=== PATIENT | female | born 1955 | race Caucasian/White ===

== ENCOUNTER → 2016-05-22 | Outpatient (CLI) | payer OTHER ==
[2016-05-22 09:17] LABS: Basophils # (A) 0.1 k/uL (0-0.2); Basophils % (A) 1 %; CHCM 32.9; Eosinophils # (A) 0.3 k/uL (0-0.7); Eosinophils % (A) 5 %; HCT 46.2 % (34.0-46.0); HDW 2.19; HGB 14.8 gm/dL (11.4-16.0); Luc # (Auto) 0.19; Luc % (Auto) 3; Lymphocytes # (A) 2.1 k/uL (1.0-4.8); Lymphocytes % (A) 35 %; MCH 29.3 pg (25.0-35.0); MCV 91.7 fL (80.0-100.0); Mean Platelet Volume 6.3; Monocytes # (A) 0.4 k/uL (0-1.0); Monocytes % (A) 6 %; Neutrophils % (A) 50 %; RBC 5.04 m/uL (3.80-5.40); RDW 13.5 % (11.5-15.5); WBC (Perox) 5.96
[2016-05-22 09:48] LABS: ALT 38 U/L (9-52); AST 28 U/L (14-36); Alkaline Phosphatase 52 U/L (38-126); Anion Gap 11 mmol/L; Blood Urea Nitrogen 20 mg/dL (7-17); Carbon Dioxide 27 mmol/L (22-30); Chloride 103 mmol/L (98-107); Cholesterol 182 mg/dL (<200); Glucose 112 mg/dL (74-99); HDL Cholesterol 81 mg/dL (40-60); Non-African American GFR(MDRD) >60 (>60 ml/min/1.73 sqM); Potassium 4.3 mmol/L (3.5-5.1); Sodium 141 mmol/L (137-145); Total Bilirubin 0.8 mg/dL (0.2-1.3); Total Protein 7.4 g/dL (6.3-8.2); Triglycerides 99 mg/dL (<150)
--- NOTE | 2016-05-22 09:53 | BD ---
EXAMINATION TYPE: MG DEXA axial skeleton. DATE OF EXAM: 05/22/2016 9:34 AM COMPARISON: 12.23.2010 CLINICAL HISTORY: M81.0 OSTEOPOROSIS Height: 59 Weight: 229 FRAX RISK QUESTIONS: Alcohol (3 or more units per day): NO Family History (Parent hip fracture): YES BUT NO BROKEN HIP Glucocorticoids (More than 3mos): NO (Ex: prednisone, prednisolone, methylprednisolone, dexamethasone, and hydrocortisone). History of Fracture in Adulthood: NO Secondary Osteoporosis: NO 1. Type 1 Diabetes: NO 2. Hyperthyroidism: NO 3. Menopause before 45: NO 4. Malnutrition: NO 5. Chronic liver disease: NO Rheumatoid Arthritis: NO Current Tobacco Use: NO RISK FACTORS HISTORY OF: Family History of Osteoporosis: YES, HER FATHER Smoke tobacco: NO Drink Alcohol: SOCIAL Active: YES Diet low in dairy products/other sources of calcium: NO Postmenopausal woman: HYST AT 49 YRS OLD Adrenal Insufficiency: NO MEDICATIONS: Prednisone or other steroids: NOT IN A LONG TIME Additional Medications: BP MEDS, XANAX, Additional History: OSTEOARTHRITIS EXAM MEASUREMENTS: Bone mineral densitometry was performed using the [employer] System. Bone mineral density as measured about the Lumbar spine is: ----- L1-L4(G/cm2): 1.537 T Score Values are as follows: ----- L1: 1.6 ----- L2: 3.9 ----- L3: 3.1 ----- L4: 3.0 ----- L1-L4: 3.0 Bone mineral density has: Increased 6.7% since study of: 12.23.2010 Bone mineral density about the R hip (g/cm2): 0.923 Bone mineral density about the L hip (g/cm2): 0.863 T Score values are as follows: -----R Neck: -0.8 -----L Neck: -1.3 -----R Intertrochanter: -0.2 -----L Intertrochanter: 0.2 Bone mineral density has: Decreased -1.4% since study of: 12.23.2010 fRAX %'S: 6.3% FOR A MAJOR OSTEOPOROTIC FX AND 0.4% FOR A HIP FX.....PROBABILITY OF FX IN 10 Y RS TIME IMPRESSION: Osteopenia (T Score between -2.5 and -1 as noted by T score values There is slightly increased risk of fracture and the patient may be considered for treatment. Re-Screen 1-2 years. FOR LT HIP ONLY AT THE NECK NOTE: T-SCORE=SD OF THE YOUNG ADULT MEAN.
[2016-05-22 12:37] LABS: Hemoglobin A1C 5.6 % (4.2-6.1)
--- NOTE | 2016-05-26 07:33 | MM ---
Reason for exam: screening (asymptomatic). Last mammogram was performed 5 years and 5 months ago. History: Patient is postmenopausal. Physical Findings: A clinical breast exam by your physician is recommended on an annual basis and results should be correlated with mammographic findings. MG Screening Mammo w CAD Bilateral CC and MLO view(s) were taken. Prior study comparison: December 23, 2010, bilateral digital screening mammo w/CAD. There are scattered fibroglandular densities. Finding: There are typically benign round linear calcifications in the right breast. There is no discrete abnormality. ASSESSMENT: Benign, BI-RAD 2 RECOMMENDATION: Routine screening mammogram of both breasts in 1 year.
== END | disposition home or self-care (01) ==
LOC: RADMAMWWP 08:21
PROVIDERS: ATTEND Internal Medicine Geriatric Medicine
DX: Z12.31 Encounter for screening mammogram for malignant neoplasm of breast (principal); M81.0 Age-related osteoporosis without current pathological fracture; M85.80 Other specified disorders of bone density and structure, unspecified site; I10 Essential (primary) hypertension; R73.9 Hyperglycemia, unspecified; E55.9 Vitamin D deficiency, unspecified; E78.00 Pure hypercholesterolemia, unspecified
CPT/HCPCS: 84439; 80061; 80053; 83036; 84443; 85025; 82306; 77080; 36415; G0202

== ENCOUNTER → 2017-07-22 | Outpatient (CLI) | payer OTHER ==
--- NOTE | 2017-07-23 09:08 | MM ---
Reason for exam: screening (asymptomatic). Last mammogram was performed 1 year and 2 months ago. History: Patient is postmenopausal. Physical Findings: A clinical breast exam by your physician is recommended on an annual basis and results should be correlated with mammographic findings. MG Screening Mammo w CAD Bilateral CC and MLO view(s) were taken. XCCL view(s) were taken of the left breast. Prior study comparison: May 22, 2016, bilateral MG screening mammo w CAD. December 23, 2010, bilateral digital screening mammo w/CAD. There are scattered fibroglandular densities. Finding: There are typically benign round, linear calcifications in both breasts. There is no discrete abnormality. ASSESSMENT: Benign, BI-RAD 2 RECOMMENDATION: Routine screening mammogram of both breasts in 1 year.
== END | disposition home or self-care (01) ==
LOC: RADMAMWWP 15:52
PROVIDERS: ATTEND Internal Medicine Geriatric Medicine
DX: Z12.31 Encounter for screening mammogram for malignant neoplasm of breast (principal)
CPT/HCPCS: 77067

== ENCOUNTER → 2017-08-13 | Outpatient (CLI) | payer OTHER ==
[2017-08-13 09:23] LABS: Basophils # (A) 0.1 k/uL (0-0.2); Basophils % (A) 1 %; Eosinophils # (A) 0.4 k/uL (0-0.7); Eosinophils % (A) 6 %; Lymphocytes # (A) 1.9 k/uL (1.0-4.8); Lymphocytes % (A) 33 %; MCHC 32.5 g/dL (31.0-37.0); MCV 92.4 fL (80.0-100.0); Mean Platelet Volume 6.5; Monocytes # (A) 0.4 k/uL (0-1.0); Monocytes % (A) 6 %; Neutrophils # (A) 2.9 k/uL (1.3-7.7); Neutrophils % (A) 50 %; Platelet Count 180 k/uL (150-450); RBC 4.98 m/uL (3.80-5.40); RDW 13.4 % (11.5-15.5); WBC 5.8 k/uL (3.8-10.6)
[2017-08-13 10:00] LABS: ALT 49 U/L (9-52); AST 33 U/L (14-36); Albumin 4.3 g/dL (3.5-5.0); Alkaline Phosphatase 49 U/L (38-126); Anion Gap 10 mmol/L; Blood Urea Nitrogen 19 mg/dL (7-17); Calcium 9.9 mg/dL (8.4-10.2); Carbon Dioxide 28 mmol/L (22-30); Chloride 102 mmol/L (98-107); Cholesterol 168 mg/dL (<200); Glucose 101 mg/dL (74-99); HDL Cholesterol 71 mg/dL (40-60); LDL Cholesterol,Calculated 80 mg/dL (0-99); Potassium 5.1 mmol/L (3.5-5.1); Sodium 140 mmol/L (137-145); Total Bilirubin 0.4 mg/dL (0.2-1.3); Triglycerides 86 mg/dL (<150)
[2017-08-13 10:13] LABS: T4, Free (Free Thyroxine) 0.97 ng/dL (0.78-2.19)
[2017-08-13 18:41] LABS: Hemoglobin A1C 5.7 % (4.0-6.0)
== END | disposition home or self-care (01) ==
LOC: LABWHC1 09:02
PROVIDERS: ATTEND Internal Medicine Geriatric Medicine
DX: I10 Essential (primary) hypertension (principal); E78.00 Pure hypercholesterolemia, unspecified; E03.9 Hypothyroidism, unspecified; R73.9 Hyperglycemia, unspecified
CPT/HCPCS: 36415; 80053; 80061; 83036; 84439; 84443; 85025

== ENCOUNTER → 2018-04-04 | Outpatient (CLI) | payer OTHER ==
--- NOTE | 2018-04-04 15:19 | XR ---
EXAMINATION TYPE: XR chest 2V DATE OF EXAM: 04/04/2018 COMPARISON: NONE HISTORY: Shortness of breath TECHNIQUE: Frontal and lateral views of the chest are obtained. FINDINGS: Scattered senescent parenchymal changes noted. Hyperinflation compatible with COPD. No evidence for infiltrate. No evidence for atelectasis. Heart size is stable. Mediastinal structures are stable and grossly unremarkable. No evidence for hilar prominence. Degenerative changes dorsal spine. IMPRESSION: 1. No evidence for acute pulmonary disease.
== END | disposition home or self-care (01) ==
LOC: RADXRMAIN 14:53
PROVIDERS: ATTEND Internal Medicine Geriatric Medicine
DX: R05 Cough (principal)
CPT/HCPCS: 71046

== ENCOUNTER → 2018-09-15 | Outpatient (CLI) | payer OTHER ==
--- NOTE | 2018-09-16 09:14 | MM ---
Reason for exam: screening (asymptomatic). Last mammogram was performed 1 year and 2 months ago. History: Patient is postmenopausal. Physical Findings: A clinical breast exam by your physician is recommended on an annual basis and results should be correlated with mammographic findings. MG Screening Mammo w CAD Bilateral CC and MLO view(s) were taken. XCCL view(s) were taken of the right breast. Prior study comparison: July 22, 2017, bilateral MG screening mammo w CAD. May 22, 2016, bilateral MG screening mammo w CAD. The breast tissue is almost entirely fat. Stable benign calcifications. There is no discrete abnormality. No significant changes when compared with prior studies. ASSESSMENT: Benign, BI-RAD 2 RECOMMENDATION: Routine screening mammogram of both breasts in 1 year.
--- NOTE | 2018-09-16 10:37 | BD ---
EXAMINATION TYPE: Axial Bone Density DATE OF EXAM: 09/15/2018 COMPARISON: 05.04.2016 CLINICAL HISTORY: 63 YR OLD FEMALE....ICD-10 CODE: M81.0 AGE RELATED Height: 58.4 Weight: 254 FRAX RISK QUESTIONS: NOTHING ADDITIONAL TO NOTE HERE RISK FACTORS HISTORY OF: HX OF ANKLE AND ELBOW FXS BEFORE THE AGE OF 51 YRS OLD Family History of Osteoporosis: YES, NO FXS Postmenopausal woman: TOTAL HYST AT 49 YRS OLD MEDICATIONS: Additional Medications: BP MEDS, STATIN FOR CHOLESTEROL, VITAMINS, VIT D, TUMS FOR REFLUX, XANAX Additional History: HYPERTENSION, CHOLESTEROL EXAM MEASUREMENTS: Bone mineral densitometry was performed using the [employer] System. Bone mineral density as measured about the Lumbar spine is: ----- L1-L4(G/cm2): 1.645 T Score Values are as follows: ----- L1: 2.0 ----- L2: 3.9 ----- L3: 4.5 ----- L4: 4.6 ----- L1-L4: 3.9 Bone mineral density has: Increased 8.2% since study of: 05.22.2016 Bone mineral density about the R hip (g/cm2): 1.005 Bone mineral density about the L hip (g/cm2): 1.012 T Score values are as follows: -----R Neck: -1.1 -----L Neck: -1.0 -----R Total: 0.0 -----L Total: 0.0 Bone mineral density has: Increased 2.0% since study of: 05.22.2016 FRAX%s: THERE IS A 6.2% CHANCE FOR A MAJOR OSTEOPOROTIC FX AND A 2.0% FOR HIP.....PROBABILITY FOR F X IN 10 YRS TIME Dextroscoliosis is noted. IMPRESSION: Osteopenia (T Score between -2.5 and -1). There is slightly increased risk of fracture and the patient may be considered for treatment. Re-Screen 2-5 years. NOTE: T-SCORE=SD OF THE YOUNG ADULT MEAN.
== END | disposition home or self-care (01) ==
LOC: RADMAMWWP 14:55
PROVIDERS: ATTEND Internal Medicine Geriatric Medicine
DX: Z12.31 Encounter for screening mammogram for malignant neoplasm of breast (principal); M85.80 Other specified disorders of bone density and structure, unspecified site
CPT/HCPCS: 77067; 77080

== ENCOUNTER 2018-12-24 13:33 | Emergency (ER) | payer OTHER ==
[2018-12-24 13:39] VITALS: TEMP 98
[2018-12-24] MEDS ORDERED: SODIUM CHLORIDE 0.9% 1,000 ML IV STA (14:25)
[2018-12-24] MEDS ORDERED: DIAZEPAM 5 MG/ML 2 ML INJ IVP STA (14:25)
[2018-12-24 15:16] LABS: Appearance,Urine Clear (Clear); Bilirubin,Urine Negative (Negative); Blood,Urine Negative (Negative); Color,Urine Light Yellow; Glucose,Urine (UA) Negative (Negative); Ketones,Urine Negative (Negative); Leukocyte Esterase,Urine Negative (Negative); Nitrite,Urine Negative (Negative); PH, Urine 5.5 (5.0-8.0); Protein,Urine Negative (Negative); Specific Gravity,Urine 1.011 (1.001-1.035); Urobilinogen,Urine <2.0 mg/dL (<2.0)
--- NOTE | 2018-12-24 15:17 | XR ---
EXAMINATION TYPE: XR chest 2V DATE OF EXAM: 12/24/2018 COMPARISON: 04/04/2018 HISTORY: Dizziness TECHNIQUE: Frontal and lateral views of the chest are obtained. FINDINGS: Heart and mediastinum are normal. Lungs are clear. Diaphragm is normal. Bony thorax appear s normal. IMPRESSION: Normal chest. No change.
[2018-12-24 15:22] LABS: Basophils % (A) 0 %; Eosinophils % (A) 1 %; HCT 44.2 % (34.0-46.0); HGB 15.1 gm/dL (11.4-16.0); Lymphocytes # (A) 1.2 k/uL (1.0-4.8); Lymphocytes % (A) 15 %; MCH 31.2 pg (25.0-35.0); MCHC 34.1 g/dL (31.0-37.0); MCV 91.4 fL (80.0-100.0); Mean Platelet Volume 5.9; Monocytes # (A) 0.3 k/uL (0-1.0); Monocytes % (A) 4 %; Neutrophils # (A) 6.2 k/uL (1.3-7.7); Neutrophils % (A) 79 %; Platelet Count 213 k/uL (150-450); Prothrombin Time 10.6 sec (9.0-12.0); RBC 4.84 m/uL (3.80-5.40); WBC 7.9 k/uL (3.8-10.6)
[2018-12-24 15:24] LABS: ALT 45 U/L (9-52); AST 43 U/L (14-36); African American GFR (CKD) >90 (>60 ml/min/1.73 sqM); Albumin 4.5 g/dL (3.5-5.0); Alkaline Phosphatase 47 U/L (38-126); Anion Gap 9 mmol/L; Blood Urea Nitrogen 18 mg/dL (7-17); Calcium 9.7 mg/dL (8.4-10.2); Carbon Dioxide 26 mmol/L (22-30); Chloride 105 mmol/L (98-107); Glucose 131 mg/dL (74-99); Sodium 140 mmol/L (137-145); Total Bilirubin 0.5 mg/dL (0.2-1.3); Total Protein 7.6 g/dL (6.3-8.2)
--- NOTE | 2018-12-24 15:36 | ED ---
Dizziness HPI - General Chief Complaint: Dizziness Stated Complaint: Irregular heartbeat, vertigo Time Seen by Provider: 12/24/18 13:35 Source: patient Mode of arrival: wheelchair Limitations: no limitations - History of Present Illness Initial Comments: With past medical history of hypertension and hyperlipidemia who presents to the emergency department with report vertiginous symptoms. They are worse with positional changes. States that they were sudden onset this morning. She does have a mild associated headache which is graded 2 out of 10. Denies any visual changes. No unilateral numbness or weakness. Feels as if the room is spinning on her. When she attempts to ambulate she feels off balance. She reports 1 history of similar in the past. She was never evaluated for and states that after several days it went away on its own. She denies any fevers or chills. Admits to nausea with 2 episodes of vomiting earlier today. She thought maybe her sugar was low so she attempted to eat something and vomited it right back up. Denies a history of diabetes. No recent blunt head trauma. Denies weakness. No history of strokes. Does admit to an urgent care who performed an EKG. He were concerned with the way it looked in there for the patient come into the emergency room. She denies cardiac history. Denies chest pain or shortness of breath. No chest palpitations at this time. Reports a history of palpitations for which she did have a cardiac evaluation. States it's been a long time since she has had them. There are no other alleviating, precipitating or modifying factors - Related Data Home Medications Medication Instructions Recorded Confirmed ALPRAZolam [Xanax] 0.125 mg PO DAILY PRN 12/24/18 12/24/18 Bisoprol/Hydrochlorothiazide 1 tab PO DAILY 12/24/18 12/24/18 [Bisoprolol-Hctz 10-6.25 mg Tab] Ergocalciferol [Vitamin D2] 50,000 unit PO Q14D 12/24/18 12/24/18 Hydrochlorothiazide [Hydrodiuril] 25 mg PO DAILY 12/24/18 12/24/18 Lisinopril [Zestril] 20 mg PO DAILY 12/24/18 12/24/18 Multivitamins, Thera [Multivitamin 1 tab PO DAILY 12/24/18 12/24/18 (formulary)] Simvastatin [Zocor] 20 mg PO QAM 12/24/18 12/24/18 Previous Rx's Medication Instructions Recorded Meclizine [Antivert] 25 mg PO TID PRN #15 tab 12/24/18 Allergies Allergy/AdvReac Type Severity Reaction Status Date / Time adhesive tape Allergy Rash/Hives Verified 12/24/18 14:19 bee venom protein (honey bee) Allergy Swelling Verified 12/24/18 14:19 Review of Systems ROS Statement: Those systems with pertinent positive or pertinent negative responses have been documented in the HPI. ROS Other: All systems not noted in ROS Statement are negative. Past Medical History Past Medical History: Hyperlipidemia, Hypertension History of Any Multi-Drug Resistant Organisms: None Reported Past Surgical History: Hysterectomy, Orthopedic Surgery Additional Past Surgical History / Comment(s): abd exp lap Past Psychological History: No Psychological Hx Reported Smoking Status: Never smoker Past Alcohol Use History: Occasional Past Drug Use History: None Reported General Exam Limitations: no limitations Course Vital Signs 12/24/18 12/24/18 12/24/18 13:35 15:00 17:00 Temperature 98.0 F Pulse Rate 73 75 76 Respiratory 18 16 16 Rate Blood Pressure 204/99 153/86 136/76 O2 Sat by Pulse 97 98 98 Oximetry EKG Findings - EKG Comments: EKG Findings:: EKG demonstrates a normal sinus rhythm with a ventricular rate of 87. SC interval 98. QRS 106. QTC 474. Incomplete right bundle branch block. There is a Q wave in lead 3. No acute ST segment elevations Medical Decision Making - Medical Decision Making Upon arrival patient was placed into room 9. A thorough history and physical exam was performed. I did repeat in 12-lead EKG and the patient which does not demonstrate any concerning signs to me. The patient does have a right bundle branch block. There is a Q wave in lead 3. Peripheral IV was established. The patient was given 5 mg of Valium and a liter bolus of normal saline. I recommended laboratory studies, chest x-ray and a CT the patient's brain. Laboratory studies are unremarkable. Urine is negative. First troponin is negative. CT of the patient's brain demonstrates no acute findings chest x-ray demonstrates no change, normal chest. I did reevaluate the patient. She states that she was able to get up and ambulate to the CT with improvement in her symptoms. As the patient's symptoms are not entirely resolved I did recommend giving the patient's an additional dose of meclizine. Patient did agree to this. I did reevaluate the patient she feels comfortable for discharge at this time. I informed her that she should follow-up with a primary care physician and had a full cardiac workup. If her symptoms persist she should return to the emergency department. Patient was in agreement with the treatment plan she was discharged home ambulatory in stable condition without signs of ataxia - Lab Data Result diagrams: 12/24/18 14:50 12/24/18 14:50 Lab Results 12/24/18 12/24/18 12/24/18 Range/Units 14:50 14:50 14:50 WBC 7.9 (3.8-10.6) k/uL RBC 4.84 (3.80-5.40) m/uL Hgb 15.1 (11.4-16.0) gm/dL Hct 44.2 (34.0-46.0) % MCV 91.4 (80.0-100.0) fL MCH 31.2 (25.0-35.0) pg MCHC 34.1 (31.0-37.0) g/dL RDW 13.0 (11.5-15.5) % Plt Count 213 (150-450) k/uL Neutrophils % 79 % Lymphocytes % 15 % Monocytes % 4 % Eosinophils % 1 % Basophils % 0 % Neutrophils # 6.2 (1.3-7.7) k/uL Lymphocytes # 1.2 (1.0-4.8) k/uL Monocytes # 0.3 (0-1.0) k/uL Eosinophils # 0.0 (0-0.7) k/uL Basophils # 0.0 (0-0.2) k/uL PT 10.6 (9.0-12.0) sec INR 1.0 (<1.2) Sodium 140 (137-145) mmol/L Potassium 4.1 (3.5-5.1) mmol/L Chloride 105 (98-107) mmol/L Carbon Dioxide 26 (22-30) mmol/L Anion Gap 9 mmol/L BUN 18 H (7-17) mg/dL Creatinine 0.67 (0.52-1.04) mg/dL Est GFR (CKD-EPI)AfAm >90 (>60 ml/min/1.73 sqM) Est GFR (CKD-EPI)NonAf >90 (>60 ml/min/1.73 sqM) Glucose 131 H (74-99) mg/dL Calcium 9.7 (8.4-10.2) mg/dL Total Bilirubin 0.5 (0.2-1.3) mg/dL AST 43 H (14-36) U/L ALT 45 (9-52) U/L Alkaline Phosphatase 47 (38-126) U/L Troponin I (0.000-0.034) ng/mL Total Protein 7.6 (6.3-8.2) g/dL Albumin 4.5 (3.5-5.0) g/dL Urine Color Urine Appearance (Clear) Urine pH (5.0-8.0) Ur Specific [place] (1.001-1.035) Urine Protein (Negative) Urine Glucose (UA) (Negative) Urine Ketones (Negative) Urine Blood (Negative) Urine Nitrite (Negative) Urine Bilirubin (Negative) Urine Urobilinogen (<2.0) mg/dL Ur Leukocyte Esterase (Negative) 12/24/18 12/24/18 Range/Units 14:50 14:50 WBC (3.8-10.6) k/uL RBC (3.80-5.40) m/uL Hgb (11.4-16.0) gm/dL Hct (34.0-46.0) % MCV (80.0-100.0) fL MCH (25.0-35.0) pg MCHC (31.0-37.0) g/dL RDW (11.5-15.5) % Plt Count (150-450) k/uL Neutrophils % % Lymphocytes % % Monocytes % % Eosinophils % % Basophils % % Neutrophils # (1.3-7.7) k/uL Lymphocytes # (1.0-4.8) k/uL Monocytes # (0-1.0) k/uL Eosinophils # (0-0.7) k/uL Basophils # (0-0.2) k/uL PT (9.0-12.0) sec INR (<1.2) Sodium (137-145) mmol/L Potassium (3.5-5.1) mmol/L Chloride (98-107) mmol/L Carbon Dioxide (22-30) mmol/L Anion Gap mmol/L BUN (7-17) mg/dL Creatinine (0.52-1.04) mg/dL Est GFR (CKD-EPI)AfAm (>60 ml/min/1.73 sqM) Est GFR (CKD-EPI)NonAf (>60 ml/min/1.73 sqM) Glucose (74-99) mg/dL Calcium (8.4-10.2) mg/dL Total Bilirubin (0.2-1.3) mg/dL AST (14-36) U/L ALT (9-52) U/L Alkaline Phosphatase (38-126) U/L Troponin I <0.012 (0.000-0.034) ng/mL Total Protein (6.3-8.2) g/dL Albumin (3.5-5.0) g/dL Urine Color Light Yellow Urine Appearance Clear (Clear) Urine pH 5.5 (5.0-8.0) Ur Specific [place] 1.011 (1.001-1.035) Urine Protein Negative (Negative) Urine Glucose (UA) Negative (Negative) Urine Ketones Negative (Negative) Urine Blood Negative (Negative) Urine Nitrite Negative (Negative) Urine Bilirubin Negative (Negative) Urine Urobilinogen <2.0 (<2.0) mg/dL Ur Leukocyte Esterase Negative (Negative) Disposition Clinical Impression: Vertigo Disposition: HOME SELF-CARE Condition: Stable Instructions (If sedation given, give patient instructions): Dizziness (ED) Additional Instructions: Please follow-up with your primary care doctor. Return to the emergency department for any new or worsening symptoms. You may need further cardiac workup or neurologic workup if your symptoms persist Prescriptions: Meclizine [Antivert] 25 mg PO TID PRN #15 tab PRN Reason: Vertigo Is patient prescribed a controlled substance at d/c from ED?: No Referrals: Jose Martin Hernandez MD [Primary Care Provider] - 1-2 days Time of Disposition: 18:06
[2018-12-24 15:42] LABS: Potassium 4.1 mmol/L (3.5-5.1)
[2018-12-24] MEDS ORDERED: MECLIZINE 12.5 MG TAB PO STA ×2 (16:38→18:04)
--- NOTE | 2018-12-24 16:40 | CT ---
EXAMINATION TYPE: CT brain wo con DATE OF EXAM: 12/24/2018 COMPARISON: None HISTORY: Dizziness today. CT DLP: 1046.4 mGycm Automated exposure control for dose reduction was used. FINDINGS: Ventricles and sulci appear normal. There is no mass effect nor midline shift. There is no sign of in tracranial hemorrhage. The calvarium is intact. IMPRESSION: NEGATIVE HEAD CT SCAN.
[2018-12-24 17:40] VITALS: PULSE 76
[2018-12-24 18:31] VITALS: BP 151/72; RESP 20
== END 2018-12-24 18:32 | disposition home or self-care (01) ==
LOC: EC 13:33
DX: R42 Dizziness and giddiness (principal); R51 Headache; R11.2 Nausea with vomiting, unspecified; I45.10 Unspecified right bundle-branch block; I10 Essential (primary) hypertension; E78.5 Hyperlipidemia, unspecified; Z79.899 Other long term (current) drug therapy; Z91.048 Other nonmedicinal substance allergy status; Z91.030 Bee allergy status
CPT/HCPCS: 36415; 93005; 80053; 84484; 85025; 85610; 81003; 71046; 70450; 99284; 96374; 96361; J3360

== ENCOUNTER 2019-10-15 02:59 | Emergency (ER) | payer BC, OTHER ==
[2019-10-15 03:12] VITALS: BP 137/70; PULSE 80; RESP 18; TEMP 98.3
[2019-10-15] MEDS ORDERED: DIPH,PERTUS(ACELL)TETVAC-LF 0.5 ML VIAL IM ONE (03:30)
[2019-10-15] MEDS ORDERED: TOPICAL SKIN ADHESIVE 1 EACH AMP TOPICAL ONE (03:30)
--- NOTE | 2019-10-15 03:40 | ED ---
Wound/Laceration HPI - General Chief Complaint: Wound/Laceration Stated Complaint: fall Time Seen by Provider: 10/15/19 03:30 Source: patient, family Mode of arrival: wheelchair Limitations: no limitations - History of Present Illness Initial Comments: Elena is a pleasant 64-year-old female who presents the ER this morning for evaluation of a laceration to forehead. Patient reports she was having a nightmare when she rolled out of bed struck her head on the nightstand. She did not lose consciousness she immediately woke up and noted bleeding from her forehead. She applied direct pressure and came to the ER for sutures. Patient denies any headache, vision changes, weaknesses, trouble with ambulating. She denies any additional injuries. Does not know when her tetanus was last updated. - Related Data Home Medications Medication Instructions Recorded Confirmed ALPRAZolam [Xanax] 0.125 mg PO DAILY PRN 12/24/18 12/24/18 Bisoprolol/Hydrochlorothiazide 1 tab PO DAILY 12/24/18 12/24/18 [Bisoprolol-Hctz 10-6.25 mg Tab] Ergocalciferol [Vitamin D2] 50,000 unit PO Q14D 12/24/18 12/24/18 Multivitamins, Thera [Multivitamin 1 tab PO DAILY 12/24/18 12/24/18 (formulary)] Simvastatin [Zocor] 20 mg PO QAM 12/24/18 12/24/18 hydroCHLOROthiazide [Hydrodiuril] 25 mg PO DAILY 12/24/18 12/24/18 lisinopriL [Zestril] 20 mg PO DAILY 12/24/18 12/24/18 Previous Rx's Medication Instructions Recorded Meclizine [Antivert] 25 mg PO TID PRN #15 tab 12/24/18 Allergies Allergy/AdvReac Type Severity Reaction Status Date / Time adhesive tape Allergy Rash/Hives Verified 10/15/19 03:12 bee venom protein (honey bee) Allergy Swelling Verified 10/15/19 03:12 Review of Systems ROS Statement: Those systems with pertinent positive or pertinent negative responses have been documented in the HPI. ROS Other: All systems not noted in ROS Statement are negative. Past Medical History Past Medical History: Hyperlipidemia, Hypertension History of Any Multi-Drug Resistant Organisms: None Reported Past Surgical History: Hysterectomy, Orthopedic Surgery Additional Past Surgical History / Comment(s): abd exp lap Past Psychological History: No Psychological Hx Reported Smoking Status: Never smoker Past Alcohol Use History: Occasional Past Drug Use History: None Reported General Exam - General Exam Comments Initial Comments: Physical Exam GENERAL: Patient is well-developed and well-nourished. Patient is nontoxic and well-hydrated and is in no distress. HENT: Normocephalic Approximately 2 cm laceration with a vertical orientation from the medial surface of the left eyebrow up the forehead, laceration involves the skin and superficial muscle layers, there is no visible bone, no active bleeding TMs normal bilaterally no hemotympanum No cervantes signs no raccoon eyes Nasal septum is intact, no septal hematoma and no bleeding EYES: PERRL, EOMI PULMONARY: Unlabored respirations. CARDIOVASCULAR: RRR Warm and well perfused extremities ABDOMEN: Non-distended SKIN: No rashes or bruising : Deferred NEUROLOGIC: Alert and oriented Normal speech Normal gait MUSCULOSKELETAL: Moving all extremities with no apparent injury PSYCHIATRIC: No SI/HI Limitations: no limitations Course Vital Signs 10/15/19 03:06 Temperature 98.3 F Pulse Rate 80 Respiratory 18 Rate Blood Pressure 137/70 O2 Sat by Pulse 96 Oximetry Procedures - Laceration Laceration #1 Consent Obtained: verbal consent Indication: laceration Site: face Size (cm): 2 Description: linear Depth: simple, single layer Pre-repair: wound explored Type of Sutures: other (skin glue) Patient Tolerated Procedure: well, no complications Medical Decision Making - Medical Decision Making The patient was seen and evaluated history obtained from patient and Patient with a laceration on the forehead need for tetanus vaccine update I offered to suture the laceration however the patient requested skin glue and she does not want sutures I do feel the patient will have adequate cosmesis with skin glue Wound was repaired with skin glue, wound care was discussed patient remained awake alert oriented and appropriate comfortable with plan for discharge home without further CT imaging Disposition Clinical Impression: Laceration Disposition: HOME SELF-CARE Condition: Stable Additional Instructions: As we discussed any keep the wound clean and dry, do not apply any Neosporin or ointment to the skin glue as this will cause breakdown of the glue Return to the ER if the wound becomes red, swollen, painful or there are signs of infection Keep the laceration protected from the sun for the next 3mo to prevent scaring Is patient prescribed a controlled substance at d/c from ED?: No Referrals: Elena Ho [STAFF PHYSICIAN] - 1-2 days
== END 2019-10-15 04:10 | disposition home or self-care (01) ==
LOC: EC 02:59 → SUPCPDRO 02:59 → EC 04:10
DX: S01.81XA Laceration without foreign body of other part of head, initial encounter (principal); E78.5 Hyperlipidemia, unspecified; I10 Essential (primary) hypertension; Z79.899 Other long term (current) drug therapy; Z23 Encounter for immunization; Z91.048 Other nonmedicinal substance allergy status; Z91.030 Bee allergy status; W06.XXXA Fall from bed, initial encounter; Y92.003 Bedroom of unspecified non-institutional (private) residence as the place of occurrence of the external cause
CPT/HCPCS: 12011; 90471; 90715; 99282

== ENCOUNTER → 2022-01-23 | Outpatient (CLI) | payer MEDICARE ==
--- NOTE | 2022-01-23 12:11 | BD ---
EXAMINATION TYPE: Axial Bone Density DATE OF EXAM: 01/23/2022 COMPARISON: 09/15/2018 CLINICAL HISTORY: 66 years year old Female. ICD-10 CODE: M81.0 OSTEOPOROSIS Height: 58.5 IN Weight: 242 LBS FRAX RISK QUESTIONS: History of Fracture in Adulthood: RT ANKLE FX AGE 41; LT ELBOW FX AGE 41 Secondary Osteoporosis: 3. Menopause before 45: TOTAL HYST AGE 41 RISK FACTORS HISTORY OF: Family History of Osteoporosis: YES FATHER Active: YES Postmenopausal woman: TOTAL HYST AGE 41 Lost more than 2 inches in height since high school: 2 02/23" HEIGHT LOSS MEDICATIONS: Additional Medications: BLOOD PRESSURE MEDS, CHOLESTEROL MEDS EXAM MEASUREMENTS: Bone mineral densitometry was performed using the [employer] System. Bone mineral density as measured about the Lumbar spine is: ----- L1-L4(G/cm2): 1.609 T Score Values are as follows: ----- L1: 2.1 ----- L2: 3.0 ----- L3: 4.7 ----- L4: 4.1 ----- L1-L4: 3.6 Bone mineral density has: Decreased -2.8% since study of: [id number] Bone mineral density about the R hip (g/cm2): 0.841 Bone mineral density about the L hip (g/cm2): 0.895 T Score values are as follows: -----R Neck: -1.4 -----L Neck: -1.0 -----R Total: -0.3 -----L Total: 0.1 Bone mineral density has: Decreased -1.0% since study of: 09/15/2018 FRAX%s: The graph provided illustrates a 12.0 chance for a major osteoporotic fx and a 1.1 chance for the hips probability for fx in 10 years time. IMPRESSION: Osteopenia (T Score between -2.5 and -1). There is slightly increased risk of fracture and the patient may be considered for treatment. Re-Screen 2-5 years. NOTE: T-SCORE=SD OF THE YOUNG ADULT MEAN.
--- NOTE | 2022-01-26 08:46 | MM ---
Reason for Exam: Screening (asymptomatic). Last mammogram was performed 3 year(s) and 5 month(s) ago. Patient History: Menarche at age 15. First Full-Term at age 30. Left ovary removed at age 49. Right ovary removed at age 49. Hysterectomy at age 49. Postmenopausal. Risk Values: Judit 5 year model risk: 1.7%. NCI Lifetime model risk: 6.3%. Prior Study Comparison: 05/22/2016 Bilateral Screening Mammogram, [facility]. 07/22/2017 Bilateral Screening Mammogram, [facility]. 09/15/2018 Bilateral Screening Mammogram, [facility]. Tissue Density: The breast tissue is heterogeneously dense. This may lower the sensitivity of mammography. Findings: Analyzed By CAD. There is no suspicious group of microcalcifications or new suspicious mass in either breast. Overall Assessment: Benign, BI-RAD 2 Management: Screening Mammogram of both breasts in 1 year. A clinical breast exam by your physician is recommended on an annual basis and results should be correlated with mammographic findings. Electronically signed and approved by: Danielito Chaparro M.D. Radiologis
== END | disposition home or self-care (01) ==
LOC: RADBDWWP 10:26
PROVIDERS: ATTEND Internal Medicine Geriatric Medicine
DX: Z12.31 Encounter for screening mammogram for malignant neoplasm of breast (principal); M85.89 Other specified disorders of bone density and structure, multiple sites; Z90.721 Acquired absence of ovaries, unilateral; Z78.0 Asymptomatic menopausal state
CPT/HCPCS: 77063; 77067; 77080

== ENCOUNTER → 2023-06-02 | Outpatient (CLI) | payer MEDICARE ==
--- NOTE | 2023-06-03 15:14 | MM ---
Reason for Exam: Screening (asymptomatic). Last mammogram was performed 1 year(s) and 4 month(s) ago. Patient History: Menarche at age 15. First Full-Term at age 30. Left ovary removed at age 49. Right ovary removed at age 49. Hysterectomy at age 49. Postmenopausal. Risk Values: Judit 5 year model risk: 1.7%. NCI Lifetime model risk: 5.9%. Prior Study Comparison: 07/22/2017 Bilateral Screening Mammogram, [facility]. 09/15/2018 Bilateral Screening Mammogram, [facility]. 01/23/2022 Bilateral MG 3D screening mammo w/cad, [facility]. Tissue Density: There are scattered areas of fibroglandular density. Findings: Analyzed By CAD. There is no suspicious group of microcalcifications or new suspicious mass in either breast. Overall Assessment: Benign, BI-RAD 2 Management: Screening Mammogram of both breasts in 1 year. . Patient should continue monthly self-breast exams. A clinical breast exam by your physician is recommended on an annual basis. This exam should not preclude additional follow-up of suspicious palpable abnormalities. Note on Judit scores and lifetime risk: 1. A Judit score greater than 3% is considered moderate risk. If this is the case, consider specialist referral to assess eligibility for a risk reducing agent. 2. If overall lifetime risk for the development of breast cancer is 20% or higher, the patient may qualify for future screening with alternating mammogram and breast MRI. Electronically signed and approved by: Danielito Chaparro M.D. Radiologis
== END | disposition home or self-care (01) ==
LOC: RADMAMWWP 09:05
PROVIDERS: ATTEND Internal Medicine Geriatric Medicine
DX: Z12.31 Encounter for screening mammogram for malignant neoplasm of breast (principal); Z78.0 Asymptomatic menopausal state
CPT/HCPCS: 77063; 77067

== ENCOUNTER 2023-12-28 16:36 | Emergency (ER) | payer MEDICARE ==
[2023-12-28 17:11] VITALS: RESP 18
--- NOTE | 2023-12-28 17:30 | ED ---
Fall HPI - General Chief Complaint: Fall Stated Complaint: L arm injury Time Seen by Provider: 12/28/23 16:52 Source: patient, RN notes reviewed Mode of arrival: ambulatory - History of Present Illness Initial Comments: This is a 68-year-old female presenting with for a slip and fall at home x 2 hours ago. Patient states she accidentally is slipped on a rug and fell fo rward, and came to splay out, mostly falling onto her left arm and shoulder with associated pain (7 out of 10). Endorses falling onto hardwood floor. Patient denies striking her head or post fall head/neck pain. Patient denies any lightheadedness/dizziness, chest pain, palpitations, shortness of breath prior to or after fall. Patient states she is unable to abduct her left arm at all following the fall. Patient denies any injuries elsewhere. MD Complaint: fall Onset/Timin -: hour(s) Fall From: standing Fall Witnessed: yes, by family Place Fall Occurred: home Loss of Consciousness: none Prolonged Down Time?: no Symptoms Prior to Fall: none Location - Extremities: Left: Shoulder, Arm Severity scale (1-10): 7 Context: tripped/slipped - Related Data Home Medications Medication Instructions Recorded Confirmed ALPRAZolam [Xanax] 0.125 mg PO DAILY PRN 12/24/18 12/24/18 Bisoprolol/Hydrochlorothiazide 1 tab PO DAILY 12/24/18 12/24/18 [Bisoprolol-Hctz 10-6.25 mg Tab] Ergocalciferol [Vitamin D2] 50,000 unit PO Q14D 12/24/18 12/24/18 Multivitamins, Thera [Multivitamin 1 tab PO DAILY 12/24/18 12/24/18 (formulary)] Simvastatin [Zocor] 20 mg PO QAM 12/24/18 12/24/18 hydroCHLOROthiazide [Hydrodiuril] 25 mg PO DAILY 12/24/18 12/24/18 lisinopriL [Zestril] 20 mg PO DAILY 12/24/18 12/24/18 Previous Rx's Medication Instructions Recorded Meclizine [Antivert] 25 mg PO TID PRN #15 tab 12/24/18 Allergies Allergy/AdvReac Type Severity Reaction Status Date / Time adhesive tape Allergy Rash/Hives Verified 12/28/23 17:07 bee venom protein (honey bee) Allergy Swelling Verified 12/28/23 17:07 Review of Systems ROS Statement: Those systems with pertinent positive or pertinent negative responses have been documented in the HPI. ROS Other: All systems not noted in ROS Statement are negative. Past Medical History Past Medical History: Hyperlipidemia, Hypertension History of Any Multi-Drug Resistant Organisms: None Reported Past Surgical History: Hysterectomy, Orthopedic Surgery Additional Past Surgical History / Comment(s): abd exp lap Past Psychological History: No Psychological Hx Reported Smoking Status: Never smoker Past Alcohol Use History: Occasional Past Drug Use History: None Reported General Exam Limitations: physical limitation General appearance: alert, in no apparent distress Head exam: Present: atraumatic, normocephalic, normal inspection Eye exam: Present: normal appearance, PERRL, EOMI. Absent: scleral icterus, conjunctival injection, periorbital swelling ENT exam: Present: normal exam, mucous membranes moist Neck exam: Present: normal inspection. Absent: tenderness, meningismus, lymphadenopathy Respiratory exam: Present: normal lung sounds bilaterally. Absent: respiratory distress, wheezes, rales, rhonchi, stridor Cardiovascular Exam: Present: regular rate, normal rhythm, normal heart sounds. Absent: systolic murmur, diastolic murmur, rubs, gallop, clicks GI/Abdominal exam: Present: soft, normal bowel sounds. Absent: distended, tenderness, guarding, rebound, rigid Extremities exam: Present: tenderness (Positive distal left clavicle anterior and lateral shoulder and significant humerus tenderness. Negative obvious crepitus or deformity), normal capillary refill, other (Distal left hand neurovascular and motor function intact.). Absent: full ROM (Patient unable to abduct left arm from body at all due to significant pain with attempt), pedal edema, joint swelling, calf tenderness Back exam: Present: normal inspection. Absent: tenderness, vertebral tenderness Neurological exam: Present: alert, oriented X3, CN II-XII intact Psychiatric exam: Present: normal affect, normal mood Skin exam: Present: warm, dry, intact, normal color. Absent: rash Course Vital Signs 12/28/23 17:07 Temperature 98.4 F Pulse Rate 65 Respiratory 18 Rate Blood Pressure 141/72 O2 Sat by Pulse 98 Oximetry Medical Decision Making - Medical Decision Making Did you speak to anyone other than the patient for history (EMS, parent, family, police, friend...)? What history was obtained from this source @ -No Did you review nursing and triage notes (agree or disagree)? Why? @ -I reviewed and agree with nursing and triage notes Were old charts reviewed (outside hosp., previous admission, EMS record, old EKG, old radiological studies, urgent care reports/EKG's, group home records)? Report findings @ -No old charts were reviewed Differential Diagnosis (chest pain, altered mental status, abdominal pain women, abdominal pain men, vaginal bleeding, weakness, fever, dyspnea, syncope, headache, dizziness, GI bleed, back pain, seizure, CVA, palpatations, mental health, musculoskeletal)? @ -Shoulder dislocation, clavicular fracture, scapular fracture, humeral head fracture, humerus fracture, rotator cuff tear, shoulder contusion, upper extremity contusion. EKG interpreted by me (3pts min.). @ -Not done X-rays interpreted by me (1pt min.). @ -Left shoulder and humerus x-ray revealed closed fracture at greater tubercle of the humerus CT interpreted by me (1pt min.). @ -None done U/S interpreted by me (1pt. min.). @ -None done What testing was considered but not performed or refused? (CT, X-rays, U/S, labs)? Why? @ -None What meds were considered but not given or refused? Why? @ -Patient declined IM Toradol for pain and T3 starter pack for ongoing pain. Did you discuss the management of the patient with other professionals (professionals i.e. , PA, ASSOCIATE DIRECTOR FINANCIAL AID, lab, RT, psych nurse, social work manager, debubblizer, teacher, chief revenue officer, disease case manager)? Give summary @ -No Was smoking cessation discussed for >3mins.? @ -No Was critical care preformed (if so, how long)? @ -No Were there social determinants of health that impacted care today? How? (Homelessness, low income, unemployed, alcoholism, drug addiction, transportation, low edu. Level, literacy, decrease access to med. care, retirement, rehab)? @ -No Was there de-escalation of care discussed even if they declined (Discuss DNR or withdrawal of care, Hospice)? DNR status @ -No What co-morbidities impacted this encounter? (DM, HTN, Smoking, COPD, CAD, Cancer, CVA, ARF, Chemo, Hep., AIDS, mental health diagnosis, sleep apnea, morbid obesity)? @ -None Was patient admitted / discharged? Hospital course, mention meds given and route, prescriptions, significant lab abnormalities, going to OR and other pertinent info. @ -Discharge. Left shoulder/humerus x-rays ordered. Patient given Motrin 800 p.o. for pain. X-ray showed proximal humerus fracture. Patient provided sling and advised to follow-up with Ortho in 24 to 48 hours. Undiagnosed new problem with uncertain prognosis? @ -No Drug Therapy requiring intensive monitoring for toxicity (Heparin, Nitro, Insulin, Cardizem)? @ -No Were any procedures done? @ -No Diagnosis/symptom? @ -Humerus fracture Acute, or Chronic, or Acute on Chronic? @ -Acute Uncomplicated (without systemic symptoms) or Complicated (systemic symptoms)? @ -Uncomplicated Side effects of treatment? @ -No Exacerbation, Progression, or Severe Exacerbation? @ -No Poses a threat to life or bodily function? How? (Chest pain, USA, PA, pneumonia, PE, COPD, DKA, ARF, appy, cholecystitis, CVA, Diverticulitis, Homicidal, Suicidal, threat to staff... and all critical care pts) @ -No Disposition Clinical Impression: Humerus fracture Disposition: HOME SELF-CARE Condition: Good Instructions (If sedation given, give patient instructions): Arm Fracture in Adults (ED) Additional Instructions: Alternate Tylenol/ibuprofen every 4 hours as needed for pain. Follow-up with orthopedics in the next 24 to 48 hours for ongoing care. Is patient prescribed a controlled substance at d/c from ED?: No Referrals: Jose Martin Hernandez MD [Primary Care Provider] - 1-2 days Time of Disposition: 19:24
[2023-12-28] MEDS: IBUPROFEN 800 MG TAB PO STA (18:06)
--- NOTE | 2023-12-28 18:40 | XR ---
EXAMINATION TYPE: XR clavicle LT DATE OF EXAM: 12/28/2023 COMPARISON: None HISTORY: Fall left shoulder and humerus pain, left arm pain following fall TECHNIQUE: 2 view left clavicle FINDINGS: Acromioclavicular and sternoclavicular junctions appear normal. The clavicle as visualized appears intact. No acute left clavicular fractures identified. Follow-up can be performed as clinical ly indicated. Faintly visualized is a left greater tuberosity fracture of the humerus. IMPRESSION: 1. No acute left clavicular fracture. 2. Fracture of the greater tuberosity left humerus. [facility], Workstation: [facility], 12/28/2023 6:37 PM
--- NOTE | 2023-12-28 19:01 | XR ---
EXAMINATION TYPE: XR shoulder complete LT DATE OF EXAM: 12/28/2023 COMPARISON: Left humerus HISTORY: Fall, pain TECHNIQUE: 2 view left shoulder FINDINGS: There is a fracture of the greater tuberosity of the humerus. This is not well-visualized o n these images. Please see left humerus for additional evaluation. Humeral head articulates with the glenoid. Acromioclavicular junction appears normal. IMPRESSION: 1. Subtle fracture of the greater tuberosity left humerus [facility], Workstation: [facility], 12/28/2023 6:59 PM
--- NOTE | 2023-12-28 19:02 | XR ---
EXAMINATION TYPE: XR humerus LT DATE OF EXAM: 12/28/2023 COMPARISON: None HISTORY: Fall, pain TECHNIQUE: 2 view left humerus FINDINGS: There is a fracture of the greater tuberosity left humerus. No additional fractures are jamaal dent. Humeral head articulates the glenoid. The elbow appears intact IMPRESSION: 1. Fracture of the greater tuberosity left humerus. [facility], Workstation: [facility], 12/28/2023 7:00 PM
[2023-12-28 19:51] VITALS: BP 132/81; PULSE 74; TEMP 98.1
== END 2023-12-28 19:51 | disposition home or self-care (01) ==
LOC: EC 16:36
DX: S42.302A Unspecified fracture of shaft of humerus, left arm, initial encounter for closed fracture (principal); Z91.09 Other allergy status, other than to drugs and biological substances; Z91.030 Bee allergy status; W01.0XXA Fall on same level from slipping, tripping and stumbling without subsequent striking against object, initial encounter
CPT/HCPCS: 99283

== ENCOUNTER → 2024-08-01 | Outpatient (CLI) | payer MEDICARE ==
[2024-08-01 15:13] LABS: ALT 25 U/L (8-44); AST 19 U/L (13-35); Albumin 4.2 g/dL (3.8-4.9); Albumin/Globulin Ratio 1.75 Ratio (1.60-3.17); Alkaline Phosphatase 55 U/L (41-126); BUN/Creat Ratio 30.85 Ratio (12.00-20.00); Blood Urea Nitrogen 40.1 mg/dL (9.0-27.0); Calcium 8.6 mg/dL (8.7-10.3); Carbon Dioxide 23.5 mmol/L (21.6-31.8); Chloride 107 mmol/L (96-109); Globulin 2.4 g/dL (1.6-3.3); Glucose 93 mg/dL (70-110); Sodium 144 mmol/L (135-145); Total Bilirubin 0.3 mg/dL (0.3-1.2); Total Protein 6.6 g/dL (6.2-8.2)
[2024-08-01 15:14] LABS: Basophils # (A) 0.05 X 10*3/uL (0.00-0.10); Basophils % (A) 0.4 %; Eosinophils # (A) 0.06 X 10*3/uL (0.04-0.35); Eosinophils % (A) 0.5 %; HCT 40.1 % (37.2-46.3); HGB 12.6 g/dL (12.0-15.0); Lymphocytes % (A) 25.1 %; MCH 29.5 pg (27.0-32.0); MCHC 31.4 g/dL (32.0-37.0); MCV 93.9 FL (80.0-97.0); Mean Platelet Volume 9.2 FL (9.5-12.2); Monocytes # (A) 0.77 X 10*3/uL (0.20-1.00); Monocytes % (A) 6.4 %; NRBC Per 100 WBC 0 X 10*3/uL (0.00-0.01); Neutrophils # (A) 7.96 X 10*3/uL (1.80-7.70); Neutrophils % (A) 66.8 %; Platelet Count 242 X 10*3/uL (140-440); RBC 4.27 X 10*6/uL (4.10-5.20); RDW 13.7 % (11.5-14.5); WBC 11.94 X 10*3/uL (4.50-10.00)
== END | disposition home or self-care (01) ==
LOC: LABWHC1 09:42
PROVIDERS: ATTEND Dermatology
DX: L12.1 Cicatricial pemphigoid (principal)
CPT/HCPCS: 36415; 80053; 82955; 83516; 85025